=== PATIENT | female | born 1995 | race Caucasian/White ===

== ENCOUNTER 2021-11-27 08:00 | Outpatient (RCR) | payer MEDICAID, SELFPAY ==
--- NOTE | 2021-11-27 09:10 | BH.SGPN.GN ---
Behaviors/Verbalizations/Mental Status: [] Eye contact is good. Motor activity is restless. Appearance is casual. Speech is Appropriate. Mood is anxious. Affect is congruent. Thoughts are linear and logical. No evidence of psychosis. Reviewed daily check in sheet and no reports of suicidal ideations or intent. Client Response/Progress/Benefit: [] Pt was an active participant in group discussions. Attentive. Introduced herself as this was pt's first day in IOP. She choose not to share much stating I'm not sure what I want to get out of this. She did provided appropriate feedback on numerous group discussions and was engaged. No progress noted as this was pt's first day. Will continue in IOP to prevent decompensation, increase healthy coping, and decrease impact of MH on daily functioning. Narrative Note: []
--- NOTE | 2021-11-27 10:16 | BH.SGPN.GN ---
Behaviors/Verbalizations/Mental Status: []Client alert and oriented, casually dressed and groomed. Eye contact good. Motor activity appropriate. Speech within normal limits. Affect congruent, mood depressed and anxious. Thoughts linear, logical, no signs of hallucinations or delusions. Client Response/Progress/Benefit: []Client new to IOP tx on this date, she responded well to session AEB sharing throughout and listening attentively to others. Client participated in group discussion defining boundaries and why having healthy boundaries is important. Client provided an example of the importance of healthy boundaries, stating ?boundaries can keep you from feeling overwhelmed or taking on more than you can handle?. Client appeared to connect to psychoeducation on types of boundaries, including physical, emotional, and intellectual. Client listened attentively and shared throughout discussion in which group members shared personal examples of different types of boundaries. Client noted she has struggled with communicating her boundaries in the past out of fear of how the person may respond. Client appeared to benefit from increased knowledge of the types of boundaries and increased self-awareness of personal boundaries. Will continue IOP treatment to improve mood stability and anxiety management skills, increase stress tolerance, and prevent decompensation. Narrative Note: []
--- NOTE | 2021-11-28 11:15 | BH.SGPN.GN ---
Behaviors/Verbalizations/Mental Status: [] Client alert and oriented, casually dressed and appropriately groomed. Eye contact fair. Motor activity WNL. Speech within normal limits. Affect congruent, mood anxious. Thoughts linear and intact. no signs of delusions or hallucinations. Client Response/Progress/Benefit: [] Client responded well to session AEB listening attentively to peers and providing some input throughout. client stated she struggles with knowing how much personal information is appropriate to share with others. Reported needs help with recognizing appropriate balance on what to share about herself. Client contributed during psychoeducation on the different boundary styles. Participated in small group discussion brainstorming various strategies for improving healthy personal boundaries. Client agreeable to complete provided worksheet for homework, in which she is to identify if she has porous, rigid or healthy boundaries for emotional, physical, intellectual, sexual, material, and time boundaries. Seemed to benefit from increased awareness of how different boundary styles can impact mental health. Will continue IOP tx to improve daily functioning, increase healthy coping and prevent decompensation.
--- NOTE | 2021-12-01 11:10 | BH.SGPN.GN ---
Behaviors/Verbalizations/Mental Status: []Client alert and oriented, casually dressed and groomed. Eye contact fair to good. Motor activity appropriate. Speech within normal limits. Affect congruent, mood anxious and depressed. Thoughts linear, logical, no signs of hallucinations or delusions. client Response/Progress/Benefit: b[]Pt responded well to session AEB taking notes and providing input and examples throughout. Group discussed the different categories of coping skills which included distraction, emotional release, grounding, self-love, and thought challenging. Pt created a coping skill menu identifying various skills to try in each category. Pt?s coping skill menu included: walking, writing, finding inspirational quotes, setting reminders, and changing her perspective. Appeared to benefit from increasing repertoire of healthy coping skills. Pt?s second day of IOP tx. Pt will continue IOP tx to prevent decompensation, improve overall functioning, and gain healthy coping skills. Narrative Note: []
--- NOTE | 2021-12-01 11:29 | BH.MDN_ITS ---
Multi-Disciplinary Note - Note 60-min Individual Time Started:: 09:05 Date: 12/01/21 Purpose of session/treatment goals addressed:: To gather information on client's current stressors, symptoms, triggers, and tx goals. Another goal was build rapport and identify client current coping skills. Eye Contact:: Good Motor Activity:: Appropriate Appearance:: Casual Speech:: Pressured Mood:: Anxious, Depressed Affect:: Congruent Thoughts:: Linear, Logical, Flight of ideas, No evidence of hallucinations/delusions noted Staff Interventions:: motivational interviewing, psychoeducation on: - anxiety, depression, adverse childhood experiences, maintenance cycles, rapport building, strengths perspective, treatment planning, goal setting Client Response:: Client responded well to session, open to meeting with therapist. Client reports finding the IOP program to be beneficial in some ways yet challenging in others. Went on to explain enjoying the psychoeducation components of tx, but struggling to listen to fellow participants share their own stressors and mental health challenges. Client indicated trying to challenge herself to identify ways she can learn and grow from other?s experiences. Client discussed feeling anxious and depressed for the past year. Client shared struggling with beliefs she is not living up to her full potential and knowing she has high expectations for herself. Indicated that since being diagnosed with ADHD last January she has had to accept that she may struggle with being able to fully meet the expectations she has for herself. Expressed struggling with remaining present and often spends a lot of time in her own head which she feels impacts ability to connect with others and enjoy the present moment. Noted her mental health sx have significantly worsened in the past 4-5 years since returning home from studying abroad in [facility]. Expressed difficulties in transitioning back to speaking [place] and [place] culture and begin experiencing more anxiety, decreased concentration, and depression since. Client withdrew from college as a result and has been working at a local [employer] the past two years. Client discussed often feeling different from others and as though she does not fit in which reinforces depression and anxiety sx. Reports struggling to connect with others and difficulties in allowing herself to reach out for help when needing it. Additional stressors include worrying about her mother, a recent negative counseling experience with a [employer] counselor she had been meeting with and getting back into her educational pursuits. Client endorses lack of motivation, lack of energy, hopelessness, worthlessness, crying spells, depression, anxiety, racing thoughts, restlessness, and guilt. Client receptive to psychoeducation on depression, anxiety, adverse childhood experie nces, and maintenance cycles. Identified goals for tx as wanting to develop more ?agency? in her life and her educational pursuits. Risks/Concerns:: Client denies any suicidal ideations, plan, or intent. Denies any homicidal ideations. Future oriented. Protective factors noted. Progress Toward Goals/Plan:: Client's first week of IOP tx and reports feeling uncertain but hopeful about being in the group setting. Pt reports her functioning has been poor because of her mental health and she wants to be able to improve her focus and ability to meet her expectations for herself. Client currently endorses a depressed mood, lack of motivation, lack of energy, restlessness, racing thoughts, crying spells, and anxiety. Client's will continue IOP tx next week. Time Stopped:: 10:07
--- NOTE | 2021-12-01 11:30 | BH.MTP_ITS ---
[facility] Treatment Plan - Patient Information Program Physician:: Dr. Mikaela Aleman Primary Therapist:: DONI Reddy - Psychiatric Diagnoses Psychiatric Diagnoses:: 1. Major depressive disorder, recurrent, severe without psychosis. 2. Generalized anxiety disorder. 3. ADHD diagnosed 8 months ago and heavily invested in by the patient. 4. Rule out autism spectrum disorder versus cluster A personality traits Diagnosis Code(s):: F 33.2 - Estimated LOS Estimated LOS (in weeks):: 6 Problem/Goal #1 - Problem/Goal #1 Stated Goal:: Client will reduce overall frequency, intensity, and duration of anxiety and ruminating thoughts that reinforce anxiety and impede concentration so that daily functioning is not impaired. Description of Barriers: Pt has limited transportation and often walks to [facility] which could be a concern on inclement weather days. Pt has high expectations for herself and her ability to accomplish things which could be exacerbating her anxiety. Pt reports recent ADHD dx impacting concentration and restlessness. Pt's symptoms currently interfering with her social and educational functioning. Functional Impact: The patient is a 26-year-old female with a history of depression, anxiety and ADHD diagnosed in January 2021. The patient was referred by her psychiatric security nurse for worsening depression, anxiety, and ADHD issues. The patient left college in 2017 for mental health reasons, but took classes at a community college until the fall 2019. She reports having a hard time adjusting to life back in [place] after leaving college. She feels her ADHD symptoms worsen her symptoms of depression and anxiety. The patient states I spend hours strategizing. She has somewhat limited primary support. She has had significant struggles in recent weeks and months with reconciling her Taoist emily which her with her homosexuality following an interaction with her prior emily-based counselor this past July, resulting in increased depression and passive SI. Reports feeling invalidated by the counselor and depressed by christianity and society. At time of admission, patient endorses a sad depressed mood and cries every morning, low motivation, isolating herself, hopelessness and worthlessness, decreased concentration, restlessness, guilt, passive SI without specific plan or intent, feeling overwhelmed, and racing thoughts. Reports current symptoms impacting her relationships, self-esteem, and ability to meet expectations for herself academically. - Objectives Objective #1 Stated Objective: Pt will identify 2-3 anxiety and inattention/restlessness triggers and 2 coping skills to use when feeling anxious or struggling with restlessness/reduced concentration to manage anxiety as shown by reducing DSM-5 scores for anxiety. Interventions: Through group and individual sessions, pt will gain awareness of her anxiety and somatic symptom triggers and learn numerous techniques to manage anxiety and physical symptoms. Therapist will teach mindfulness and other calm ing techniques to help pt manage symptoms and increase distress tolerance skills. Therapist will also provide psychoeducation on the maintenance cycle of health anxiety and what reinforces this cycle. Discharge Criteria: Pt will have met this goal when DSM-5 scores show a decrease for anxiety and when she can identify at least 2 triggers and 2 ways to cope with anxiety. Target Date: 01/08/22 Review Date: 12/18/21 Objective #2 Stated Objective: Client will reduce restlessness and increase increase ability to be present during social interactions by learning 2-3 strategies to improve interpersonal effectiveness skills. Interventions: Teach mindfulness meditation to help the client recognize the thought processes associated with disengagement and difficulties being present and change his/her relationship with these thoughts by improving ability to slow down and focus on conversations/interactions with others while reducing racing thoughts. Discharge Criteria: Client will be able to identify and implement at least 2 mindfulness skills to improve ability to focus on interpersonal exchanges and reduce restlessness. Target Date: 01/08/22 Review Date: 12/18/21 Problem/Goal #2 - Problem/Goal #2 Stated Goal:: Pt will reduce depressive symptoms, hopelessness, and passive thoughts of due to major depressive disorder. Description of Barriers: Pt has limited transportation and often walks to [facility] which could be a concern on inclement weather days. Pt has high expectations for herself and her ability to accomplish things which could be exacerbating her anxiety. Pt reports recent ADHD dx impacting concentration and restlessness. Pt's symptoms currently interfering with her social and educational functioning. Functional Impact: The patient is a 26-year-old female with a history of depression, anxiety and ADHD diagnosed in January 2021. The patient was referred by her psychiatric security nurse for worsening depression, anxiety, and ADHD issues. The patient left college in 2017 for mental health reasons, but took classes at a community college until the fall 2019. She reports having a hard time adjusting to life back in [place] after leaving college. She feels her ADHD symptoms worsen her symptoms of depression and anxiety. The patient states I spend hours strategizing. She has somewhat limited primary support. She has had significant struggles in recent weeks and months with reconciling her Taoist emily which her with her homosexuality following an interaction with her prior emily-based counselor this past July, resulting in increased depression and passive SI. Reports feeling invalidated by the counselor and depressed by christianity and society. At time of admission, patient endorses a sad depressed mood and cries every morning, low motivation, isolating herself, hopelessness and worthlessness, decreased concentration, restlessness, guilt, passive SI without specific plan or intent, feeling overwhelmed, and racing thoughts. Reports current symptoms impacting her relationships, self-esteem, and ability to meet expectations for herself academically. - Objectives Objective #1 Stated Objective: Pt will learn and utilize 2-3 healthy coping strategies to better manage depressive symptoms and reduce DSM-5 symptoms for depression. Interventions: Through group and individual sessions, therapist will help pt identify triggers and warning signs of depression and emotional dysregulation including emotional, physical, and behavioral changes. Therapist will teach pt various coping skills to manage her symptoms. Therapist will use cognitive restructuring techniques and help pt gain awareness of negative thoughts that reinforce depressive cycles. Therapist will help pt incorporate mindfulness and emotional regulation skills when dealing with difficult situations. Discharge Criteria: Pt will have met this goal when she can report learning and using at least 2 coping skills to manage depressive symptoms and her DSM-5 scores for depression have decreased. Target Date: 01/08/22 Review Date: 12/18/21 Objective #2 Stated Objective: Pt will identify at least 2-3 negative self-talk messages used to reinforce guilt, worthlessness, and unrealistic expectations of self/success and replace thoughts with balanced, realistic messages. Interventions: Therapist will help pt identify distorted, negative beliefs about self and replace with more realistic, affirmative messages. Therapist will use CBT and DBT to help pt increase insight to the connection between thoughts, emotions, and behaviors. Therapist will encourage pt to practice thought challenging. Discharge Criteria: Pt will have achieved this goal when can verbalize at least 2 cognitive distortions and effectively replace those thoughts with affirmative messages. Target Date: 01/08/22 Review Date: 12/18/21
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
--- NOTE | 2021-12-01 13:45 | BH.DR.ITP ---
Initial Treatment Plan Patient Information Visit Information: ADMISSION DATE: EXPECTED LOS: 4-6 weeks Problems/Symptoms Problem #1:: Depression Symptom:: Sadness, crying, worthlessness, hopelessness,, decreased concentration, passive thoughts of , fleeting, passive suicidal ideation Problem #2:: Anxiety Symptom:: Restlessness, racing thoughts, feelings of being overwhelmed, avoidance, worry
--- NOTE | 2021-12-05 09:02 | BH.SGPN.GN ---
Behaviors/Verbalizations/Mental Status: []Eye contact is good. Motor activity is appropriate. Appearance is casual. Speech is Appropriate. Mood is anxious and depressed. Affect is congruent. Thoughts are linear and logical. No evidence of psychosis. Reviewed daily check in sheet and no reports of suicidal ideations or intent. Client Response/Progress/Benefit: [] Pt responded well to session, engaged and attentive throughout. Pt reports feeling anxious, angry, and sad this morning with no specific triggers or causes for these emotions. Pt discussed primarily struggling to adjust to challenging her expectations for herself with her current functioning, as well as identifying skills for managing her emotional intensity so that functioning is not impaired. Shared that challenging herself to focus on her resilience and reaching out to supports has been most helpful. Pt identified current mental health wins as getting up early and jogging this morning which helped with improving her mood and allowing herself to wake-up. Additional win noted as continuing to follow-up with her BOWLING FLOOR MANAGER how has been helpful in aiding pt to navigate her new ADHD diagnosis, sharing that this has been beneficial in feeling less alone as well. Appeared to benefit from reflecting on skills he used in managing his mood and supportive feedback provided by group. Will continue IOP tx to reinforce healthy coping skills and promote mood stability, as well as continue to encourage self-compassion to prevent decompensation. Narrative Note: []
--- NOTE | 2021-12-09 09:00 | BH.SGPN.GN ---
Behaviors/Verbalizations/Mental Status: [] Eye contact is good. Motor activity is appropriate. Appearance is casual. Speech is Appropriate. Mood is euthymic. Affect is full. Thoughts are linear and logical. No evidence of psychosis. Reviewed daily check in sheet and no reports of suicidal ideations or intent. Client Response/Progress/Benefit: [] Pt was an active participant in group discussion. Attentive. Emotion for today is fatigued. Mental health wins is going jogging which she reports is very beneficial to her mental health. She also drove to [employer] over the weekend to tour the campus. 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 She went with a friend and they spent the afternoon there. She is stressed about her future plans and the role that [email or web address] will play in that. 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 In regards to her emotions she states It wasn't terrible over the weekend. She provided a great deal of positive feedback and encouragement to peers. Benefited from group support and encouragement. Will continue in IOP to prevent decompensation, increase health coing skills, stablize mood, and improve social functioning. Narrative Note: []
--- NOTE | 2021-12-09 11:15 | BH.SGPN.GN ---
Behaviors/Verbalizations/Mental Status: []Client alert and oriented, casually dressed and groomed. Eye contact good. Motor activity appropriate. Speech within normal limits. Affect congruent, mood anxious. Thoughts linear, logical, no signs of hallucinations or delusions. Client Response/Progress/Benefit: []Client responded well to session, attentive. Did well to process activity and work with group to relate the strategies used to overcome barriers in the activity to managing change in own life. Client identified a change they would like to making a structure for maintaining habit and change. Client stated recognizing behaviors and thoughts that impact her progress and identify benefits of various changes. Appeared to benefit from identifying a small goal to work towards. Client will continue IOP tx to prevent decompensation, gain healthy coping skills, and improve daily functioning.
== END 2021-12-09 23:59 ==
LOC: BHIOP 08:00
PROVIDERS: PCP Nurse Practitioner Family; Referring Provider Psychiatry & Neurology Psychiatry; Visit Provider Psychiatry & Neurology Psychiatry
DX: F33.2 Major depressive disorder, recurrent severe without psychotic features (principal); F41.1 Generalized anxiety disorder; F90.9 Attention-deficit hyperactivity disorder, unspecified type
CPT/HCPCS: 90792; H2012; H2020; S9480; 90837

== ENCOUNTER 2021-12-10 07:25 | Outpatient (RCR) | payer MEDICAID, SELFPAY ==
--- NOTE | 2021-12-05 11:15 | BH.SGPN.GN ---
Behaviors/Verbalizations/Mental Status: []Pt alert and oriented, neatly dressed and groomed. Eye contact good. Motor activity appropriate. Speech within normal limits. Affect constricted, mood euthymic and anxious. Thoughts linear, logical, no signs of hallucinations or delusions Client Response/Progress/Benefit: []Pt responded well to session AEB pt listening attentively to others and providing input during group discussion on the pay offs and costs of the different communication styles. Pt reports she is often passive which leads to pt shutting down and assuming other?s emotions and thoughts. Pt did well in the activity to be assertive and ask for feedback. Attentive during psychoeducation on interpersonal DBT skill RADHA. Pt set a goal to work on expressing her needs instead of assuming things. Pt seemed to benefit from increasing awareness of healthy strategies to improve communication. Pt will continue IOP tx to improve impulse control, improve mood stability, and increase self-awareness. Narrative Note: []
--- NOTE | 2021-12-12 10:49 | BH.COMM ---
Communication Note - Communication with Client Communication Note: Pt scheduled for individual and group sessions on this date; however, did not show or call to cancel. Therapist attempted to reach out but pt unable to be reached and voicemail full. Will continue to attempt to follow-up.
--- NOTE | 2021-12-16 09:00 | BH.SGPN.GN ---
Behaviors/Verbalizations/Mental Status: []Client alert and oriented, casually dressed and groomed. Eye contact good. Motor activity appropriate. Speech within normal limits. Affect normal, mood irritable. Thoughts linear, logical, no signs of hallucinations or delusions. Reviewed client?s symptom tracker, no risk for suicidal ideation, plan, or intent as of 12/16/21 Client Response/Progress/Benefit: []Client engaged and cooperative in group. Client identified emotion of the day as stressed and discussed how it was hard for her to come today and feeling unmotivated this morning. Client reflected on her ability to come to group despite feeling stressed. Client reported feeling better since medication changes and shared overall positives since starting IOP. Client appeared to benefit from acknowledging progress and supportive feedback provided by group. Will continue with IOP tx to increase overall functioning and self image. Narrative Note: []
--- NOTE | 2021-12-17 15:37 | BH.TPR ---
Treatment Plan Review Date of Admission:: 11/27/21 Date of Treatment Plan Review:: 12/17/21 Admitting Diagnoses:: 1. Major depressive disorder, recurrent, severe without psychosis. 2. Generalized anxiety disorder. 3. ADHD diagnosed 8 months ago and heavily invested in by the patient. 4. Rule out autism spectrum disorder versus cluster A personality traits Current Diagnoses:: 1. Major depressive disorder, recurrent, severe without psychosis (improving). 2. Generalized anxiety disorder. 3. Autism spectrum disorder. 4. Rule out ADHD. 5. Rule out cluster a personality traits Patient's Response to Treatment:: Pt has responded well to treatment AEB pt consistently attending IOP sessions and reduction of DSM-5 scores by 15% since admission. Pt contributes well during individual sessions and actively contributes during group sessions; however, at times struggles with making loose associations resulting in pt comments appearing off-topic or difficult to follow which has resulted in increased frustration when pt unable to get her point across. Pt applies some self-care and coping skills outside of IOP and reports overall mood is improved and pt is doing better at managing adhd symptoms, though continues to struggle with concentration at times. Status of Current Problems and Symptoms: Pt's symptoms are still present, but resolving in several areas. Pt's overall DSM-5 scores have decreased by 15% since admission, but pt is still scoring moderate/ borderline severe for anxiety and depression. Pt expresses worries about maintenance and pt continues to struggle managing her expectations which often reinforces anxiety and negative core beliefs about self contributing to maintaining depression as well. 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 Pt also continues to struggle with implementing grounding and relaxation skills in the moment as she reports not seeing the long-term benefit to these. Problem #1 Problem Name:: Anxiety, restlessness Status of Goals:: Objective 1-complete with ongoing work encouraged. Pt can identify some triggers for anxiety and restlessness symptoms. Pt reports using some skills for challenging anxious thoughts and feels medication changes have aided in reducing restlessness; however, pt struggles with consistent skill application and self-reports limited desire to slow her racing thoughts. Pt's DSM-5 scores for anxiety decreased by 25% since admission. Objective 2- in progress. Pt is currently working on learning and implementing mindfulness and grounding skills into her daily routine to reduce racing thoughts and improve ability to be present with others. Pt reports not yet trying any of the skills learned and is apprehensive in doing so as she enjoys her thoughts and does not feel it is as much of a priority to slow down and engage more in the moment. Team Recommendations:: Treatment team recommends that pt continue working on implementing healthy coping skills on a consistent basis to promote gains. It is also recommended that pt continue working on encouraging application of mindfulness skills. Problem #2 Problem Name:: Depression Status of Goals:: Objective 1-complete with ongoing work encouraged. Pt?s DSM-5 scores for depression decreased by 13% since admission. Pt can identify healthy coping skills including opposite action, thought challenging, and self-care. Objective 2- in progress. Pt is gaining more awareness of cognitive distortions and the messages she tells herself that reinforce negative core beliefs and unrealistic expectations of self. Working on increasing self-compassion. Team Recommendations:: Treatment team recommends pt continue working on combatting distortions such as personalization and absolute thinking. Also encourage pt to continue working on self-compassion.
--- NOTE | 2021-12-18 09:08 | BH.SGPN.GN ---
Behaviors/Verbalizations/Mental Status: []Client alert and oriented, casually dressed and groomed. Eye contact normal. Motor activity appropriate. Speech within normal limits. Affect congruent, mood agitated. Thoughts linear, logical, no signs of hallucinations or delusions. Reviewed client's symptom tracker, no risk for suicidal ideation, plan, or intent as of 12/18/21 Client Response/Progress/Benefit: [] Client responded well to session, with consistently providing active supportive feedback to other group members. Client reported feeling anxious and sad by explaining that she is finding herself having a hard time putting thoughts together, but is hopeful due to feeling supported. 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 Client discussed she feels she is slowly starting to open herself up more with still finding it difficult due to past experiences. Appeared to benefit by giving input and discussed how she appreciates the validation from other group members. Will continue IOP tx to process cognitive distortions and improve functioning. Narrative Note: []
--- NOTE | 2021-12-18 10:20 | BH.SGPN.GN ---
Behaviors/Verbalizations/Mental Status: []Eye contact is good. Motor activity WNL. Appearance is casual. Speech is Appropriate. Mood is euthymic and anxious. Affect is congruent. Thoughts are linear and logical. No evidence of psychosis. Client Response/Progress/Benefit: []Pt engaged and actively participating throughout group discussions and psychoeducation on managing emotions. Contributed as group identified obstacles or potholes that hinder our ability to communicate in stressful situations. Group identified the following obstacles; assumptions, shutting down, misinterpreting someone?s communication style, personalizing, and trying to communicate too much information at once. Pt provided insight on how awareness of triggers can help improve emotion regulation and overall communication. Pt was engaged during the activity, taking on both a leadership role as well as allowing herself to be vulnerable in the group setting. Benefited from increased awareness on how our emotions impact our communication. Will continue in IOP to prevent decompensation, continue to learn healthy coping skills, and improve daily functioning. Narrative Note: []
--- NOTE | 2021-12-18 11:15 | BH.SGPN.GN ---
Behaviors/Verbalizations/Mental Status: []Pt alert and oriented, neatly dressed and groomed. Eye contact good. Motor activity appropriate. Speech within normal limits. Affect congruent, mood agitated. Thoughts linear, logical, no signs of hallucinations or delusions. Client Response/Progress/Benefit: []Pt engaged in session AEB client listening attentively to peers and providing input. Attentive during psychoeducation on 4 zones of regulation. Pt able to identify feelings and behaviors for each zone. Pt identified coping skills one can use to support self in each zone. Pt highly engaged with giving examples for emotions, behaviors, and coping skills. Pt left right before sharing what zone she was in today, but pt did report to individual therapist that she could benefit from practicing grounding skills today. Benefited from increased education on zones of regulation or stages of alertness for emotions and healthy coping skills to use for each zone. Pt will continue IOP tx to increase self-awareness, improve impulse control, and reduce negative thinking patterns. Narrative Note: []
--- NOTE | 2021-12-18 14:36 | BH.MDN ---
Multi-Disciplinary Note - Note 30-min Individual Time Started:: 12:02 Date: 12/18/21 Purpose of session/treatment goals addressed:: Purpose of session was to address goal 1 from MTP. Eye Contact:: Good Motor Activity:: Restless Appearance:: Casual Speech:: Pressured Mood:: Euthymic, Anxious Affect:: Congruent Thoughts:: Linear, Logical, Racing, No evidence of hallucinations/delusions noted Staff Interventions:: motivational interviewing, psychoeducation on: - self-care, mindfulness, mindfulness skills, strengths perspective, treatment planning, reviewed DSM-5, goal setting Client Response:: Client stated she has been feeling less anxious and more relaxed since beginning Effexor, but is struggling with doubt the medication will be effective long-term. Reports fear ?it?s just a placebo effect because I want it to be working?. Shared willingness to give it more time and continue with the current medication regime. Client went on to discuss mostly feeling her overall mood has improved since beginning the IOP program, though she continues to struggle with feeling depressed in her current environment and disconnected from others. 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 Upon further discussion however, it appears that client struggles significantly with making time for socializing outside of the structured academic or work environments and reports engaging in limited daily self-care activities. Client reports wanting to improve her ability to be more vulnerable and open with others as she often struggles to show her true personality in social settings. Shared wanting to allow others to see that she can be laid back and has a sense of humor. Receptive of discussing with therapist ways to begin taking small steps to open more in the group environment as this would be a safe place to allow herself to practice being more vulnerable. Client identified a major barrier to interacting and connecting with others as struggling with being in her own head a majority of the time. Shared this is even worse taylor at home as she does not have anyone else to help bring her back to the present moment. Indicated she has not previously explored mindfulness or grounding as a technique to improve ability to be present. Receptive of briefly reviewing what mindfulness is and examples of different grounding techniques. Willing to begin practicing a daily grounding skill when home alone to help with slowing down her internal dialogue and feeling a little more present. Risks/Concerns:: Denies suicidal/homicidal ideation, plan or intention to date. future focused. Progress Toward Goals/Plan:: Progress noted with pt reporting decrease in anxiety and feeling more positive and hopeful overall. Client continues to struggle with being guarded and not wanting to open up to others, daily racing thoughts, and difficulty connecting to others or completing some tasks at times. Client appears to struggle with giving herself credit for what she does do to improve her mental health, including regular jogging and journaling. DSM-5 scores also indicate an overall 15% in sx reduction and 25% reduction in anxiety. Client is to continue IOP to continue improving socialization and self-care, as well as prevent decompensation. Time Stopped:: 12:30
--- NOTE | 2021-12-23 09:03 | BH.SGPN.GN ---
Behaviors/Verbalizations/Mental Status: [] Client alert and oriented, neatly dressed and groomed. Eye contact good. Motor activity appropriate. Speech within normal limits. Affect congruent, mood euthymic and anxious. Thoughts linear, logical, no signs of hallucinations or delusions. Reviewed pt?s symptom tracker, no risk for suicidal ideation, plan, or intent as of 12/23/21 Client Response/Progress/Benefit: [] Client responded well to session, attentive and receptive to feedback. Client shared that a stressor for her was thinking about school starting back up in February and the daily struggle of getting herself on a schedule and leaving her house. Client was receptive to strategies from other group members to aid in client on getting in a routine. Client shared her successes of meal prepping and gaining greater insight into her triggers. Client appeared to benefit from providing ongoing suggestions to other members and receiving support. Client will continue IOP tx to reduce depressive symptoms, increase coping skills, and improve overall functioning. Narrative Note: []
--- NOTE | 2021-12-23 10:05 | BH.SGPN.GN ---
Behaviors/Verbalizations/Mental Status: [] Client alert and oriented, casually dressed and groomed. Eye contact good. Motor activity appropriate. Speech within normal limits. Affect congruent, mood euthymic, Thoughts linear, logical, no signs of hallucinations or delusions. Client Response/Progress/Benefit: []Client was well engaged in group AEB taking notes and participating in the activity. Attentive during psychoeducation and discussed the importance of goal-setting with the group. Group identified potential benefits of having goals include: they motivate, build self-confidence, and give a sense of accomplishment. Group also worked together to identify barriers to goal-setting which included; avoidance, lack of motivation, unrealistic expectations, and all or nothing thinking. Client shared that a barrier for her in accomplishing goals is her mindset along with not understanding goals and letting failure take over. Benefited from increased awareness of benefits and barriers to goal-setting. Will continue IOP tx to reduce cognitive distortions and improve daily functioning. Narrative Note: []
--- NOTE | 2021-12-23 11:05 | BH.SGPN.GN ---
Behaviors/Verbalizations/Mental Status: []Pt alert and oriented, casually dressed and groomed. Eye contact good. Motor activity appropriate. Speech within normal limits. Affect congruent, mood anxious. Thoughts linear, logical, no signs of hallucinations or delusions. Client Response/Progress/Benefit: []Pt was an active participant in group discussions and activities. Engaged in activity. Pt identified a SMART goal for the next week is to: sitting with the comfortable by sitting at her desk and writing for 10 minutes twice this week. Identified anxiety, breaking bad habits, and negative thinking as potential barriers to completing this goal. Pt able to identify several solutions, such as practicing self-awareness, creating a positive environment, and positive self-talk that can help overcome identified barriers. Benefited from group by being able to utilize SMART educate to create a goal. Pt to continue IOP tx to increase impulse control, reduce negative thinking, and improve daily functioning. Narrative Note: []
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
--- NOTE | 2021-12-25 08:13 | BH.MDN_ITS ---
Multi-Disciplinary Note - Note 45-min Individual Time Started:: 09:25 Date: 12/25/21 Purpose of session/treatment goals addressed:: Reviewed progress and current symptoms. Addressed treatment plan goals 1 and 2, discussing impact of expectations on maintaining negative core beliefs and trusting others. Eye Contact:: Good Motor Activity:: Appropriate Appearance:: Disheveled, Casual Mood:: Anxious, Dysthymic Affect:: Congruent Thoughts:: Linear, Logical, Flight of ideas, No evidence of hallucinations/ delusions noted Staff Interventions:: thought challenging, motivational interviewing, psychoeducation on: - negative core beliefs, rapport building, strengths perspective Client Response:: Pt receptive of session and actively engaged throughout. Discussed spending time thrifting with her grandmother, sister, and family friend which was a positive experience. Pt reports not often doing social things with friends or family and is glad to have taken the opportunity, viewing this as an exercise in being more social and comfortable socializing. Went on to discuss another personal positive as purchasing several taxi passes from [employer]. Pt shared she was beginning to feel she was ?overstepping a boundary? by relying on a coworker as her primary source of transportation and wanted to have more independence in deciding where and when she goes places. Expressed overall improvements in mood, decreased restlessness, and more hope for her future. Pt reflected that her only area of concern at this time is continuing to struggle with memory and concentration, specifically in regard to the [employer] course she recently began. Discussed not having the motivation or desire to study at the level she has in the past and is concerned she does not feel particularly passionate about the materials. Discussed struggling with this in the past and feelings of inadequacy or not being ?smart enough?. Receptive of challenging these thoughts and discussing how pt?s learning styles may be different. Pt receptive of discussion on negative core beliefs, their formation, and the impact they can have on reinforcing unhealthy expectations, behaviors, and self-image. Pt shared how she struggled with her grades throughout primary school and that she was often told she was not trying hard enough or was not intelligent. Able to connect this with current feelings of not meeting her full academic potential or living up to her potential. Pt acknowledged her self-talk is often critical or negative and expressed wanting to work further on improving in this area. Discussed strategies for creating more realistic, positive, self- talk statement and pt receptive of working on utilizing these for homework. Risks/Concerns:: None noted. Progress Toward Goals/Plan:: Progress is limited but present. Pt's mood is often based on her mood in the moment and whether she feels she is meeting her list of desired accomplishments at any one time. She does not want to ignore physical symptoms related to medication changes, however often struggles with focusing primarily on impact of medication and minimizing the impact of her learned coping skills and thought challenging on continuing to make progress. Pt able to acknowledge she struggles in these areas, especially with core beliefs and balanced expectations and would like to continue to work on addressing these areas in continued treatment. Will continue IOP tx to further promote mood stability, improve self-compassion, and prevent decompensation. Time Stopped:: 10:14
--- NOTE | 2021-12-30 08:14 | BH.MDN_ITS ---
Multi-Disciplinary Note - Note 45-min Individual Time Started:: 09:20 Date: 12/30/21 Purpose of session/treatment goals addressed:: To review progress, identify healthy coping plan for upcoming return to [place], as week as discuss discharge and aftercare. Eye Contact:: Good Motor Activity:: Appropriate Appearance:: Neat, Casual Speech:: Appropriate Mood:: Euthymic, Anxious Affect:: Congruent Thoughts:: Linear, Logical, No evidence of hallucinations/delusions noted Staff Interventions:: motivational interviewing, CBT techniques, discharge planning, strengths perspective Client Response:: Pt responded well to session, open to meeting with therapist. Pt shared she is feeling more positive about herself and her ability to accomplish several goals for her future. Discussed feeling overwhelmed trying to balance her current responsibilities but hopeful about her ability to do so. 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 Discussed that she would benefit most from implementing more routine and structure into her daily life upon returning to school and would be able to do so if she creates a weekly schedule. Identified plans to work with a counselor for her mental health as well as a ?life advisor/readers' advisory service librarian? for navigating academics and her career goals. Shared she has not yet found a counselor in the [facility] but is looking. Identified plans to continue challenging her distorted and fixed thinking patterns as well, and noted that meal planning for the week would help her ensure she gets regular healthy meals. Plans to continue with regular jogging as a means of emotion regulation as well. Risks/Concerns:: Pt denies any suicidal ideations or thoughts of . Progress Toward Goals/Plan:: Pt is making progress towards tx goals AEB self- report of reduced suicidal ideations and depression and improved hope for her future. Pt is actively using healthy coping skills outside of IOP and her perspective is more positive. Pt does continue to struggle with distorted and fixed thinking patterns often negatively effecting her mood and ability to regulate emotions. Pt will continue IOP tx for one more week to reinforce healthy coping skills and establish aftercare. Time Stopped:: 10:04
--- NOTE | 2021-12-30 10:10 | BH.SGPN.GN ---
Behaviors/Verbalizations/Mental Status: []Eye contact is fair. Motor activity is appropriate. Appearance is casual. Speech is Appropriate. Mood is anxious and irritable. Affect is constricted. Tangential at times. No evidence of psychosis. Client Response/Progress/Benefit: []Pt was an active participant in group discussion and activity. Attentive during psychoeducation on social stigma vs self-stigma. Pt was actively involved in interactive discussion on the question of What impacts how we define and view ourselves? Pt along with peers were able to identify several aspects that impact how we view ourselves which include: society, past experiences, upbringing, guilt over past actions, shame, what we tell ourselves, and actions. Pt reported internal stigma has kept her from accepting herself and embracing her own thoughts and opinions. Stated this has led her to often second guess herself. Benefited from increased awareness of how mental health stigma can impact individuals and treatment. Plan is to continue in IOP to improve daily functioning, improve communication skills and prevent decompensation.
--- NOTE | 2022-01-01 09:00 | BH.SGPN.GN ---
Behaviors/Verbalizations/Mental Status: []Pt alert and oriented, neatly dressed and groomed. Eye contact fair. Motor activity appropriate. Speech tangential. Affect labile-tearful then laughing then hyperventilating, mood distressed. Thoughts linear, logical, no signs of hallucinations or delusions. Reviewed pt?s symptom tracker, no risk for suicidal ideation, plan, or intent as of 01/01/22 Client Response/Progress/Benefit: [] Pt responded somewhat well to session, emotionally labile while sharing, but engaged and congruent affect while others shared. Pt reports her mood today is relaxed, anxious, hopeful, overwhelmed and became tearful. Pt shared she did not get to run this morning which is a change in pt's routine. Pt talked about her upcoming discharge from IOP and needing to get a new therapist which triggered as pt has had bad experiences with counselors in the past. Pt received support and feedback from crankshaft balancer and peers, but it is unsure if pt benefited from this. Pt's mood and affect in session today were out of her baseline. Pt will continue IOP tx to promote mood stability and further improve emotional regulation skills. Narrative Note: []
--- NOTE | 2022-01-01 13:39 | BH.MDN_ITS ---
Multi-Disciplinary Note - Note 60-min Individual Time Started:: 10:05 Date: 01/01/22 Purpose of session/treatment goals addressed:: Spoke with pt's therapist who reported pt had reported 2/5 for suicidal ideations on her daily symptom tracker which is uncharacteristic. Pt has also written despair on her symptom tracker. Met with pt to access. Eye Contact:: Good Motor Activity:: Appropriate Appearance:: Neat Speech:: Pressured, Rapid Mood:: Anxious Affect:: Full Thoughts:: Linear, Logical, No evidence of hallucinations/delusions noted Staff Interventions:: discharge planning, completed risk assessment / safety planning, other Client Response:: Pt presented to session reporting her biggest concern is change in support. She routinely meets with her PCP whom has been a very important part of her life recently. She shared the connection, trust, and rapport with her PCP and how she has helped pt through many obstacles. Pt is planning to move out of town in 02/2022 due to enrolling in college which will result in limited visits with PCP and force her to get set-up with new support/professionals. Has been avoiding setting up an appt with a new therapist (due to past negative experiences) and in general is suspicious of therapists. Overall reports feeling better this week believing that her current medication routine helps decrease anxiety and improve self-worth. She has 2 jobs lined up and is excited. When asked about the 2/5 for suicidal thoughts on her symptom tracker pt clarified that it was .2 not 2. Appears to be a miscommunication. Denies any active SI, plan, or intent. Reports occasional feelings of dread when she is presented with tasks or responsibilities which are not purpose/goal based or what she views as not interesting. She denies racing thoughts or erratic mood. Reports that she is sleeping 8 hours per night and her appetite is normal. 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 According to pt her concentration and focus are dependent on the material being presented. If interested she is hyper-focused and engaged however if disinterested I'm in my head. This impacts focus and retention of information. Denies that this has worsened since stopped ADHD medications in contrast reporting more mood stability and improved functioning w/o ADHD meds. Risks/Concerns:: No risks or concerns noted. Mild depression this AM. Denies SI, plan, or intent. Progress Toward Goals/Plan:: Pt reports progress noting feeling better in the past few weeks. Improved self-worth and increased mood stability. She is future- oriented and is planning on returning to college in the fall. 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 She reports feeling purpose and hope for the future. She was open to discussion about awareness that she will be experiencing several life changes and adjustments in the near future (job, college, relocation). Some concern that she may overwhelm herself or take on more than she can handle. We talked about being willing to drop a class or cut back on work if she feels overwhelmed and she agreed. Reviewed signs and symptoms of being overwhelmed or setting unrealistic expectations. Time Stopped:: 11:30
--- NOTE | 2022-01-08 14:00 | BH.DS_ITS ---
Discharge Summary - Demographics Date of Admission:: 11/27/21 Discharge Date: 01/08/22 Presenting Problems at Admission:: Pt is a 26 year old female with hx of ADHD and MDD. No previous psychiatric admissions. Referred to IOP by her outpatient certified coder due to worsening depression, anxiety and struggles related to ADHD. Tearful at times during intake assessment and struggles to answer questions directly. Rapid and pressured speech noting overstimulation of thoughts for the past 3-4 months. Left collage in 2018 for several reasons and has had difficulty adjusting back to life living in [place]. Endorsed poor appetite, erratic energy, low motivation, isolation, avoidance, restlessness. racing thoughts, and hyper-focused at times. I can spend hours strategizing. Limited support. Denies active suicidal ideations, plan, or intent. No hx of attempts. Denies HI or psychosis. Denies substance abuse. Family hx of depression and ADHD per pt. Discharge Diagnoses:: 1. Major depressive disorder, recurrent, severe without psychosis (improving). 2. Generalized anxiety disorder. 3. Autism spectrum disorder. 4. Rule out ADHD Reason for Discharge:: Pt was set to discharge successfully today however no showed this week for unknown reasons. Met treatment plan goals and no longer met criteria for IOP level of care. The last week was meant to finalize aftercare and plan for mood mgmt. - Treatment Progress During Treatment & Response: Pt responded well to IOP however admits that group counseling remained a challenge throughout the program. She was consistent (until the last week) and was engaged at times. Pt has responded well to treatment AEB pt consistently attending IOP sessions and reduction of DSM-5 scores by 15% during treatment team review. Unfortunately due to missing last week of IOP we were unable to gather d/c outcomes. Pt contributed well during individual sessions and actively contributes during group sessions; however, at times struggles with making loose associations resulting in pt comments appearing off-topic or difficult to follow which has resulted in increased frustration when pt unable to get her point across. Pt applies some self-care and coping skills outside of IOP and reports overall mood is improved and pt is doing better at managing adhd symptoms, though continues to struggle with concentration at times. Issues Still to be Addressed:: social anxiety, mood stability, depression, anxiety, and social skills. Encouraged further evaluation for Autism and ADHD (possibly psychological testing as she is a complex case). Pt reports progress noting feeling better in the past few weeks. Improved self-worth and increased mood stability. She is future-oriented and is planning on returning to college i n the fall. 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 She reports feeling purpose and hope for the future. She was open to discussion about awareness that she will be experiencing several life changes and adjustments in the near future (job, college, relocation). Some concern that she may overwhelming herself and setting unrealistic expectations. Discharge Recommendations/Instructions:: Pt was scheduled to discharge from [facility] this week successfully however did not attend her last week of IOP for unknown reasons. Attempts to contact via phone however VM not set up. Therapist did email her as well. There were no concerns for safety present during last IOP session as she was motivated and hopeful about the future. A list of resources were sent via email of mental health providers who take her insurance in the [facility] (pt is moving to [place] over the summer), however unsure if she set appointments. She is linked with PCP locally (whom she sees weekly) as well as a certified coder (unknown next appt). Discharge Handout: Complete Discharge Handout with client on aftercare options and continuity of care.
== END 2022-01-08 10:34 | disposition home or self-care (01) ==
LOC: BHIOP 07:25
PROVIDERS: PCP Nurse Practitioner Family; Referring Provider Psychiatry & Neurology Psychiatry; Visit Provider Psychiatry & Neurology Psychiatry
DX: F33.2 Major depressive disorder, recurrent severe without psychotic features (principal); F84.0 Autistic disorder; F41.1 Generalized anxiety disorder; Z79.899 Other long term (current) drug therapy
CPT/HCPCS: 99214; H2012; H2020; S9480; 90832; 90834; 90837

== ENCOUNTER 2022-06-23 13:33 | Emergency (ER) | payer MEDICAID, SELFPAY ==
[2022-06-23 13:34] VITALS: BP 130/101; PULSE 102; RESP 16; TEMP 36.4; O2SAT 98; BMI 21.0
--- NOTE | 2022-06-23 14:10 | EDS_ITS ---
HPI HPI - Psych History of Present Illness Chief Complaint: Suicidal Informant: patient Narrative Narrative: Patient presents per recommendation of the crisis center secondary to suicidal ideation. She states she had increasing thoughts of suicide recently and has been researching some options online. She states she knows what she does not want to do but does not have a specific plan on how she would hurt her self. She does report 1 prior attempt to hurt herself when she was in the fifth grade. Patient states she is had increasing thoughts of hurting herself for the past year but symptoms got particularly worse in April. 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 She has been working with a counselor through [facility]. She is currently on Lamictal, Effexor, and Ritalin. She states her Effexor was increased about 2 months ago and her Lamictal increased 1 month ago. [facility] Medical History ADHD Autism spectrum disorder Generalized anxiety disorder Major depressive disorder, recurrent severe without psychotic features Home Medications lamotrigine 150 mg tablet (Lamictal) 200 mg PO DAILY 12/10/21 [History Last Taken Unknown] venlafaxine 37.5 mg capsule,extended release 24 hr (Effexor XR) 140 mg PO DAILY 12/24/21 [History Last Taken Unknown] methylphenidate HCl 10 mg tablet (Ritalin) 10 mg PO TID 06/23/22 [History Last Taken Unknown] Allergy/AdvReac Type Severity Reaction Status Date / Time No Known Allergies Allergy Verified 06/23/22 13:34 Social History Smoking Status: Former smoker ROS ROS ED Constitutional Constitutional ED: Denies chills or fever(s) Eyes Eyes: Denies change in vision or discharge from eye(s) ENT ENT ED: Denies discharge from eye(s), rhinorrhea or sore throat Cardiovascular Cardiovascular: Denies chest pain or palpitations Respiratory/Chest Respiratory/Chest: Denies cough or dyspnea Gastrointestinal Gastrointestinal: Denies abdominal pain, diarrhea, nausea or vomiting Genitourinary Genitourinary ED: Denies difficulty urinating or dysuria Musculoskeletal Musculoskeletal: Denies back pain or extremity pain Integumentary Denies Abrasions or rash Neurologic Neurologic: Denies headache(s) or weakness Psychiatric Psychiatric: Reports suicidal ideation Allergic/Immunologic Allergic/Immunologic ED: Denies lip swelling or urticaria EXAM Physical Exam Const Vital Signs: 06/23/22 13:34 Temperature 97.6 F L Temperature Source Temporal Pulse Rate 102 H Respiratory Rate 16 Blood Pressure 130/101 H Blood Pressure Mean 110 Pulse Ox 98 Oxygen Delivery Method Room Air Positive well nourished and well developed General Appearance ED: well developed HEENT Reports normocephalic and head/scalp atraumatic Eyes PERRL and EOMs intact bilaterally Neck supple Chest Wall inspection of chest normal and palpation of chest normal Resp normal respiratory effort and clear to auscultation bilaterally Cardio regular rate and regular rhythm GI normal to inspection, nondistended, normoactive bowel sounds Palpation: soft Back/Spine no CVA tenderness Extremity normal to inspection Neuro oriented x3 and no sensory deficits noted Sensorium / Orientation: alert Motor Exam: strength 5/5 throughout Psych mental status grossly normal and cooperative Appearance: grossly normal Attitude: other Anxious Activity / Motor Behavior: appropriate eye contact Speech: other Slightly pressured speech Skin no rashes or lesions noted MDM MDM MDM Narrative Medical decision making narrative: Lab work for psychiatric clearance obtained. Lab Data Attestation: I reviewed the patient's lab results. Labs: Laboratory Results - last 24 hr 06/23/22 06/23/22 06/23/22 14:10 14:20 14:20 WBC 7.3 RBC 4.71 Hgb 15.3 H Hct 44.0 MCV 93.4 MCH 32.5 H MCHC 34.8 RDW Std Deviation 39.2 RDW Coeff of Yoly 11.4 L Plt Count 279 MPV 8.8 Immature Gran % (Auto) 0.500 Neut % (Auto) 85.6 H Lymph % (Auto) 7.4 L Grand % (Auto) 6.4 Eos % (Auto) 0.0 Baso % (Auto) 0.1 Absolute Neuts (auto) 6.3 Absolute Lymphs (auto) 0.54 L Nucleated RBC % 0 Sodium 137 Potassium 3.8 Chloride 101 Carbon Dioxide 31.0 Anion Gap 5 BUN 19 H Creatinine 0.67 Estim Creat Clear Calc 101.52 Est GFR (MDRD) Af Amer 137 Est GFR (MDRD) Non-Af 113 BUN/Creatinine Ratio 28.3 H Glucose 89 Calcium 9.6 Serum , Qual Urine Opiates Screen NEGATIVE Urine Methadone Screen NEGATIVE Ur Barbiturates Screen NEGATIVE Ur Phencyclidine Scrn NEGATIVE Ur Amphetamines Screen NEGATIVE MDMA (Ecstasy) Screen NEGATIVE U Benzodiazepines Scrn NEGATIVE Urine Cocaine Screen NEGATIVE U Cannabinoids Screen NEGATIVE Ur Drug Screen Comment Ethyl Alcohol 06/23/22 06/23/22 14:20 14:20 WBC RBC Hgb Hct MCV MCH MCHC RDW Std Deviation RDW Coeff of Yoly Plt Count MPV Immature Gran % (Auto) Neut % (Auto) Lymph % (Auto) Grand % (Auto) Eos % (Auto) Baso % (Auto) Absolute Neuts (auto) Absolute Lymphs (auto) Nucleated RBC % Sodium Potassium Chloride Carbon Dioxide Anion Gap BUN Creatinine Estim Creat Clear Calc Est GFR (MDRD) Af Amer Est GFR (MDRD) Non-Af BUN/Creatinine Ratio Glucose Calcium Serum , Qual NEGATIVE Urine Opiates Screen Urine Methadone Screen Ur Barbiturates Screen Ur Phencyclidine Scrn Ur Amphetamines Screen MDMA (Ecstasy) Screen U Benzodiazepines Scrn Urine Cocaine Screen U Cannabinoids Screen Ur Drug Screen Comment Ethyl Alcohol < 3.0 Treatment and Re-Evaluation Narrative: CBC significant only for slightly concentrated hemoglobin at 15.3. 85% neutrophils noted. Chemistry studies unremarkable. Tox screen and EtOH are negative. test is negative. COVID test returns positive. Patient has a sitter. Information has been sent to crisis to have them evaluate the patient. This will be signed out to oncoming provider for further observati on and disposition. Discharge Plan Triage Chief Complaint: Suicidal ED Provider: Noa Salomon Dx/Rx/DC Orders Clinical Impression: Suicidal ideation Prescriptions: No Action lamotrigine [Lamictal] 150 mg Tablet 200 mg PO DAILY venlafaxine [Effexor XR] 37.5 mg Capsule,Extended Release 24hr 140 mg PO DAILY methylphenidate HCl [Ritalin] 10 mg Tablet 10 mg PO TID Primary Care Provider: Gianna Chun Referrals: Gianna Chun NP-C [Primary Care Provider] -
[2022-06-23 14:42] LABS: Amphetamine Urine VISTA NEGATIVE (<1000 ng/mL); Barbiturate Urine VISTA NEGATIVE (< 200 ng/mL); Benzodiazepine Urine VISTA NEGATIVE (< 200 ng/mL); Cocaine Urine VISTA NEGATIVE (< 300 ng/mL); Ecstacy Urine VISTA NEGATIVE (< 500 ng/mL); Methadone Urine VISTA NEGATIVE (< 300 ng/mL); PCP Urine VISTA NEGATIVE (< 25 ng/mL); THC Urine VISTA NEGATIVE (< 50 ng/mL); Vista UDS pH Range 5
[2022-06-23 14:43] LABS: Absolute Lymphocyte Count 0.54 X10^3/uL (0.83-4.51); Absolute Neutrophil Count 6.3 X10^3/uL (2.0-7.7); Basophil# 0.01 X10^3/uL; Basophil% 0.1 % (0-1); Hemoglobin 15.3 g/dL (12.0-15.0); Lymphocyte # 0.54 X10^3/ul (0.83-4.51); Lymphocyte % 7.4 % (19-41); Mean Corp Hgb Conc 34.8 g/dL (32-36); Mean Corpuscular Hgb 32.5 pg (27.0-32.0); Mean Corpuscular Volume 93.4 fL (81-99); Mean Platelet Vol. 8.8 fl (6.2-12.0); Monocyte# 0.47 X10^3/uL; Monocyte% 6.4 % (0-10); NRBC Flagged by Analyzer 0 % (0-5); Neutrophil # 6.25 X10^3/uL (2.7-7.7); Neutrophil % 85.6 % (47-70); POSITIVE DIFFERENTIAL YES; Platelet Count 279 K/mm3 (150-450); RBC Distribution Width CV 11.4 % (11.6-14.6); RBC Distribution Width SD 39.2 fl (35.1-43.9); Red Blood Count 4.71 M/mm3 (4.2-5.4); White Blood Count 7.3 K/mm3 (4.4-11.0)
[2022-06-23 14:44] LABS: Differential Indicated SCAN CRITERIA MET
[2022-06-23 14:55] LABS: Anion Gap 5 (5-15); BUN 19 mg/dL (7-18); BUN/Creat Ratio 28.3 RATIO (10-20); Calcium,Total 9.6 mg/dL (8.5-10.1); Chloride 101 mmol/L (98-107); Creatinine, Serum 0.67 mg/dL (0.55-1.02); EST Glomerular Filtration Rate 113 mL/min (>60); Est Glom Filt Rate - Afr Amer 137 mL/min (>60); Estimated Creatinine Clearance 101.52 ml/min; Glucose 89 mg/dL (74-106); Potassium 3.8 mmol/L (3.5-5.1); Sodium Level 137 mmol/L (136-145)
[2022-06-23 15:12] LABS: Alcohol, Blood (Medical)-Serum < 3.0 mg/dL
[2022-06-23 15:14] LABS: Internal QC Validated? YES +Cl - CLEAR BKGD; Pregnancy, Serum, hCG Quali. NEGATIVE Negative
[2022-06-23 15:34] VITALS: RESP 16
--- NOTE | 2022-06-23 15:42 | NURSING ---
FAXED CHART TO CRISIS
[2022-06-23 16:26] VITALS: RESP 16
[2022-06-23 18:00] VITALS: RESP 16
[2022-06-26 20:52] LABS: Lamotrigine (Lamictal) Level 5.3 ug/mL (2.0-20.0)
== END 2022-06-23 20:50 | disposition home or self-care (01) ==
LOC: ED 14:07
PROVIDERS: Emergency Provider Emergency Medicine; PCP Nurse Practitioner Family; Visit Provider Emergency Medicine
DX: R45.851 Suicidal ideations (principal); U07.1 COVID-19; Z87.891 Personal history of nicotine dependence
CPT/HCPCS: 80048; 80307; 82077; 82542; 84703; 85025; 87811; 99283